=== PATIENT | male | born 1950 | race Caucasian/White ===

== ENCOUNTER 2023-07-24 13:53 | Outpatient (REF) | payer MEDICARE, SELFPAY ==
--- NOTE | ~2023-07-24 | XR_ITS ---
EXAMINATION: XR LUMBOSACRAL SPINE WITH OBLIQUES CLINICAL INFORMATION: Spondylolisthesis COMPARISON: None available. TECHNIQUE: 4 views of the lumbar spine were obtained. FINDINGS: Moderate to severe levoscoliosis of the lumbar spine centered at L3. Also noted is minimal retrolisthesis of L1 on L2 and L2 on L3 and mild to moderate anterolisthesis of L4 on L5. There is no appreciable change in alignment with flexion or extension positioning. Lumbar vertebral body heights are maintained. There is mild diffuse narrowing of disc spaces throughout the lumbar spine with severe narrowing at the L5/S1 level. Small osteophytes are scattered throughout the lumbar spine. There are mild degenerative changes of the posterior elements of the lower lumbar spine. XR/XR lumbar spine 4V min IMPRESSION: 1. Moderate to severe levoscoliosis and diffuse degenerative changes of the lumbar spine. 2. No radiographic evidence of instability.
== END 2023-07-24 13:54 | disposition home or self-care (01) ==
LOC: HO.HOSX 13:53
PROVIDERS: Visit Provider Physician Assistant
DX: M43.16 Spondylolisthesis, lumbar region (principal)
CPT/HCPCS: 72110; 99202

== ENCOUNTER 2023-07-24 13:53 | Outpatient (AMB) | payer MEDICARE, SELFPAY ==
--- NOTE | 2023-07-24 13:59 | HO.SPINEOV ---
Intake Intake Visit Reasons: Low back/second opinion Intake Note: Mr. An is here today c/o low back pain. Electronic Tester Required: No Assessment & Plan Assessment & Plan (1) Spondylolisthesis, lumbar region: Code(s): M43.16 - Spondylolisthesis, lumbar region Plan . Mr. An is a very nice self-referred 73-year-old male who has had back issues going on for 10 years or more. He has had a significant increase in back pain and leg pain over the last few years. He has primarily left-sided leg pain that goes down into his feet with feelings of numbness in both of his feet. There is a component of right leg pain but the left is the primary pain generator. He does have back pain more recently, especially in the mornings over the last few months it takes him about 15 minutes to get out of bed and he has almost in tears just trying to get to a standing position. Oddly enough, he works doing construction and as he is active throughout the day he seems to be okay. If he stands in the same spot or tries to walk for any distance though he has to sit down because the leg pain is excruciating. He did develop a footdrop a number of years ago and partially recovered from that. Denies any incontinence or cauda equina symptoms. He was treating the issue with injections for many years and they seemed to have some effectiveness but that is now wearing off and they are becoming less effective. Went through all the other typical treatments such as physical therapy, Tylenol, [id number] pain meds etc. through the years. He has an at [facility] from June 2023 MRI showing severe stenosis at L4-5 with spondylolisthesis, with severe stenosis at L3-4 as well. He sought on an advertisement and came in today for an evaluation. He has been seen by at [facility] in the past, who told him to just continue to treat this conservatively until the symptoms got severe. He also saw someoneSt in [place] , who told him that he could operate on him to fix his spine but would require spinal fusion with 6 months of severe agony with no guarantee that he would feel any better. Therefore the patient has been frightened of back surgery. PMH: He is otherwise healthy, history of cardiomyopathy a number of years ago that never had a clear source but may have been related to alcohol abuse at the time. He gets routine echo follow-ups in his ejection fraction has been normal according to his . History of hypertension. Denies any history of heart attacks, strokes, bleeding disorders, kidney disorders, abdominal surgeries or previous back surgery. Social hx: He does not smoke, he is not drinking or using any recreational drugs Medications: Metoprolol, lisinopril, metronidazole topical cream for rosacea, Allergies: Amoxicillin Physical exam: He has a 4-5 weakness of his right tibialis but otherwise his lower extremity strength is full. Reflexes absent bilaterally. Imaging review: Lumbar MRI done at [facility] 2023, compared to MRI done at [facility] in 2014 shows multilevel degenerative disc disease. The most significant finding is that he has a grade 1 spondylolisthesis at L4-5 with severe central canal stenosis. He also has moderate to severe central canal stenosis at L3-4. There is no spondylolisthesis at this level. He has moderate stenosis at L1-2 and L2-3. Compared to 2015 there has been significant progression at all of these levels. Impression: 73-year-old male self-referred for evaluation of back pain, bilateral leg pain with numbness of his feet, primarily left-sided leg pain however. He has multi level stenosis as outlined above. He has a spondylolisthesis at L4-5 with severe stenosis. I suspect there may be instability here, I am going to send him for flexion-extension x-rays. He also has moderate to severe stenosis at L3-4. He has moderate stenosis at L1-2 and L2-3. I think the 2 main symptom generators at this time is the L4-5 and L3-4 levels. If he shows signs of dynamic instability on his x-rays, he will need spinal fusion to address this problem. Likely this would necessitate a 2 level fusion including L3-4. If there is no instability, it is possible that he may just need a simple decompression at multiple levels. I will review his imaging with Dr. Malloy and get back to the patient with a final plan. We did briefly discuss risks and benefits of spinal fusion versus simple decompression including risks benefits recovery etc.. Thank you for allowing us to care for your patient. The total time spent with this visit with this patient was 45 minutes reviewing history, physical exam, lumbar imaging review, and implementation of treatment plan or further diagnostic testing Hossein Malloy MD,PhD [facility] Orders: Orders XR lumbar spine 4V min Today M43.16 - Spondylolisthesis, lumbar region Coding Level of Care Code New Pt Level 4 (32920) Diagnoses Spondylolisthesis, lumbar region M43.16
== END 2023-07-24 15:18 | disposition home or self-care (01) ==
PROVIDERS: Visit Provider Physician Assistant
DX: M43.16 Spondylolisthesis, lumbar region (principal)
CPT/HCPCS: 99204